=== PATIENT | male | born 1965 | race Caucasian/White ===

== ENCOUNTER 2019-08-08 17:10 | Emergency (ER) | payer SELFPAY ==
[~2019-08-08] VITALS: Ht 177.8 cm; Wt 86.4 kg
[2019-08-08 17:12] VITALS: BP 148/97
[2019-08-08] MEDS ORDERED: IBUP-2271 PO (17:20)
[2019-08-08] MEDS ORDERED: ARIP2 PO (17:20)
[2019-08-08] MEDS ORDERED: QUET100T PO (17:20)
[2019-08-08] MEDS ORDERED: PROP20TA18 PO (17:20)
== END 2019-08-08 17:49 | disposition left against medical advice (07) ==
LOC: EMS 17:10
DX: Z53.21 Procedure and treatment not carried out due to patient leaving prior to being seen by health care provider (principal)

== ENCOUNTER 2019-09-05 09:51 | Inpatient (IN) | payer MEDICAID, OTHER ==
[~2019-09-05] VITALS: Ht 182.9 cm; Wt 80.5 kg
[~2019-09-05 09:51] MED LIST: ARIP2 PO; IBUP-2271 PO; PROP20TA18 PO; QUET100T PO
[2019-09-05 11:11] LABS: AMPHET/METH SCREEN,URINE NEGATIVE (NEGATIVE); BARBITURATE SCREEN, URINE NEGATIVE (NEGATIVE); BENZODIAZEPINES SCREEN,URINE NEGATIVE (NEGATIVE); CANNABINOID SCREEN,URINE NEGATIVE (NEGATIVE); COCAINE SCREEN,URINE NEGATIVE (NEGATIVE); METHADONE SCREEN, URINE NEGATIVE (NEGATIVE); OPIATE SCREEN,URINE NEGATIVE (NEGATIVE)
[2019-09-05 11:14] LABS: PHENCYCLIDINE SCREEN,URINE NEGATIVE (NEGATIVE)
[2019-09-05] MEDS ORDERED: IBUP-2070 PO (11:15)
[2019-09-05] MEDS ORDERED: LORazepam 2 MG TABLET PO ONE (11:15)
[2019-09-05] MEDS ORDERED: HALOPERIDOL 5 MG TABLET PO ONE (11:15)
[2019-09-05 12:44] LABS: APPEARANCE,URINE CLEAR (CLEAR); BILIRUBIN,URINE NEGATIVE (NEGATIVE); GLUCOSE, URINE (UA) NEGATIVE (NEGATIVE); KETONES,URINE NEGATIVE (NEGATIVE); LEUKOCYTE ESTERASE ,URINE NEGATIVE (NEGATIVE); NITRATE,URINE NEGATIVE (NEGATIVE); OCCULT BLOOD,URINE NEGATIVE (NEGATIVE); PH,URINE 5.5 (5.0-8.0); PROTEIN,URINE NEGATIVE (NEGATIVE); UROBILINOGEN,URINE 0.2 mg/dL (<=1.0)
[2019-09-05 13:01] LABS: EOSINOPHILS % (AUTO) 4.8 % (1.0-6.0); HEMATOCRIT 43.7 % (41-53); HEMOGLOBIN 14.4 g/dL (13.5-17.5); LYMPHOCYTES # (AUTO) 2.3 K/uL (1.0-4.8); LYMPHOCYTES % (AUTO) 34.9 % (22.0-44.0); MEAN CORPUSCULAR HGB CONC 32.9 G/dL (31.0-37.0); MEAN CORPUSCULAR VOLUME 91 fL (80-100); MONOCYTES # (AUTO) 0.7 K/uL (0.1-1.0); MONOCYTES % (AUTO) 10.3 % (2.0-9.0); NEUTROPHILS # (AUTO) 3.3 K/uL (1.8-7.7); PLATELET COUNT (AUTO) 236 K/uL (150-450); RED CELL DISTRIBUTION WIDTH 15.7 % (11.5-14.5)
[2019-09-05 13:09] LABS: ANION GAP 9 mmol/L (8-16); CALCIUM, TOTAL 8.4 mg/dL (8.8-10.5); CARBON DIOXIDE 30 mmol/L (22-29); CHLORIDE 107 mmol/L (98-107); CREATININE 0.77 mg/dL (0.60-1.30); GLOMERULAR FILTR. RATE CALC > 60 mL/min (>60); GLUCOSE,RANDOM 92 mg/dL (70-110); POTASSIUM 4.2 mmol/L (3.5-5.1); SODIUM SERUM 146 mmol/L (136-145); UREA NITROGEN, BLOOD 14 mg/dL (7-18)
[2019-09-05 13:15] LABS: ALANINE AMINOTRANSFERASE 15 U/L (12-78); ALBUMIN 3.3 g/dL (3.4-5.0); ALKALINE PHOSPHATASE 113 U/L (46-116); ASPARTATE AMINOTRANSFERASE 16 U/L (15-37); BILIRUBIN,TOTAL 0.3 mg/dL (0.1-1.0); TOTAL PROTEIN, SERUM 7.3 g/dL (6.4-8.2)
[2019-09-05] MEDS ORDERED: INFLUENZA VIRUS VACCINE QVS 2019-20 (3YR+)/PF 60 MCG/0.5 ML SYRINGE IM ONE (15:45)
[2019-09-05 16:00] VITALS: BP 120/77
[2019-09-05 18:00] VITALS: BP 135/77
[2019-09-06] VITALS (7 sets, daily range): BP systolic 123–156; BP diastolic 75–86
[2019-09-06] MEDS: QUEtiapine FUMARATE 100 MG TABLET PO PRN ×2 (01:03→21:42)
[2019-09-06] MEDS: ZOLPIDEM TARTRATE 10 MG TABLET PO PRN ×2 (01:03→21:42)
[2019-09-06] MEDS ORDERED: CloNIDine HCL 0.1 MG TABLET PO PRN (10:15)
[2019-09-06] MEDS ORDERED: LOPERAMIDE HCL 2 MG CAPSULE PO PRN (10:15)
[2019-09-06] MEDS ORDERED: MAG HYDROX/AL HYDROX/SIMETH ES 30 ML SUSPENSION UDCUP PO PRN (10:15)
[2019-09-06] MEDS ORDERED: ONDANSETRON HCL 4 MG TABLET PO PRN (10:15)
[2019-09-06] MEDS ORDERED: DOCUSATE SODIUM 100 MG CAPSULE PO PRN (10:15)
[2019-09-06] MEDS ORDERED: ALBUTEROL SULFATE HFA 90 MCG/PUFF 8 GM INHALER IH PRN (10:15)
[2019-09-06] MEDS ORDERED: NICOTINE 14 MG/24 HOUR PATCH TD PRN (10:15)
[2019-09-06] MEDS ORDERED: IBUPROFEN 400 MG TABLET PO PRN (10:15)
[2019-09-06] MEDS ORDERED: MAGNESIUM HYDROXIDE SUSPENSION 30 ML UDCUP PO PRN (10:15)
[2019-09-06] MEDS ORDERED: GuaiFENesin/D-METHORPHAN [SUGAR-FREE] 200-20MG/10 ML SYRUP UDCUP PO PRN (10:15)
[2019-09-06] MEDS ORDERED: PETROLATUM,WHITE 28 GM JELLY TP PRN (10:15)
[2019-09-06] MEDS: ACETAMINOPHEN 325 MG TABLET PO PRN (16:38)
[2019-09-06] MEDS ORDERED: IBUPROFEN 600 MG TABLET PO PRN (18:15)
[2019-09-06] MEDS: LORazepam 2 MG TABLET PO PRN (18:22)
[2019-09-07 00:19] VITALS: BP 122/84
[2019-09-07] MEDS: LORazepam 2 MG TABLET PO PRN ×2 (00:57→05:24)
[2019-09-07] MEDS: ACETAMINOPHEN 325 MG TABLET PO PRN ×2 (03:25→09:36)
[2019-09-07 05:22] VITALS: BP 140/60
[2019-09-07 08:00] VITALS: BP 111/87
[2019-09-07] MEDS ORDERED: TraMADol HCL 50 MG TABLET PO PRN (08:30)
[2019-09-07 08:57] LABS: CHOL/HDL RATIO 5.1 (4.2-7.3); FREE T4 (FREE THYROXINE) 0.79 ng/dL (0.76-1.46); THYROID STIMULATING HORMONE 3.21 uIU/mL (0.36-3.74)
[2019-09-07] MEDS ORDERED: ARIPiprazole 10 MG TABLET PO SCH (09:00)
[2019-09-07] MEDS ORDERED: ARIP10TA8 PO (10:14)
== END 2019-09-07 13:30 | disposition home or self-care (01) | DRG 750 ==
LOC: EMS 09:52 → B3A 13:10
PROVIDERS: ADMIT Psychiatry & Neurology Psychiatry; ATTEND Psychiatry & Neurology Psychiatry
DX: F25.9 Schizoaffective disorder, unspecified (principal); E87.0 Hyperosmolality and hypernatremia; R45.851 Suicidal ideations; F10.10 Alcohol abuse, uncomplicated; Z71.41 Alcohol abuse counseling and surveillance of alcoholic; F11.90 Opioid use, unspecified, uncomplicated; F17.200 Nicotine dependence, unspecified, uncomplicated; Z71.6 Tobacco abuse counseling; F31.9 Bipolar disorder, unspecified; Z53.20 Procedure and treatment not carried out because of patient's decision for unspecified reasons
CPT/HCPCS: 84439; 84443; G0480

== ENCOUNTER 2022-07-17 13:51 | Inpatient (IN) | payer MEDICAID ==
[~2022-07-17] VITALS: Ht 182.9 cm; Wt 88.9 kg
[~2022-07-17 13:51] MED LIST changes: +ARIP10TA38 PO; -ARIP2 PO; -IBUP-2271 PO; -PROP20TA18 PO; -QUET100T PO
[2022-07-17] MEDS ORDERED: DIVA-112 PO (17:05)
[2022-07-17] MEDS ORDERED: VALB80CA PO (17:05)
[2022-07-17] MEDS ORDERED: GABA600T10 PO (17:05)
[2022-07-17] MEDS ORDERED: PRAZ2CAP2 PO (17:05)
[2022-07-17] MEDS ORDERED: MIRT-93 PO (17:05)
[2022-07-17 18:06] LABS: GLUCOMETER DEV NAME(LOC) POC.BV
[2022-07-18 03:00] VITALS: BP 131/83
[2022-07-18] MEDS: LORazepam 2 MG TABLET PO PRN ×4 (03:39→18:11)
[2022-07-18 09:41] VITALS: BP 125/91
[2022-07-18] MEDS ORDERED: BENZOCAINE/MENTHOL LOZENGE PO PRN (11:45)
[2022-07-18] MEDS ORDERED: CloNIDine HCL 0.1 MG TABLET PO PRN (11:45)
[2022-07-18] MEDS ORDERED: MAG HYDROX/AL HYDROX/SIMETH ES 30 ML SUSPENSION UDCUP PO PRN (11:45)
[2022-07-18] MEDS ORDERED: BACITRACIN 28 GM OINTMENT TP PRN (11:45)
[2022-07-18] MEDS ORDERED: IBUPROFEN 600 MG TABLET PO PRN (11:45)
[2022-07-18] MEDS ORDERED: DOCUSATE SODIUM 100 MG CAPSULE PO PRN (11:45)
[2022-07-18] MEDS ORDERED: MAGNESIUM HYDROXIDE SUSPENSION 30 ML UDCUP PO PRN (11:45)
[2022-07-18] MEDS ORDERED: PETROLATUM,WHITE 28 GM JELLY TP PRN (11:45)
[2022-07-18] MEDS ORDERED: ACETAMINOPHEN 325 MG TABLET PO PRN (11:45)
[2022-07-18] MEDS ORDERED: DICLOFENAC SODIUM 1% 100 GM GEL [2GM] TP PRN (11:45)
[2022-07-18] MEDS ORDERED: ONDANSETRON HCL 4 MG TABLET PO PRN (11:45)
[2022-07-18] MEDS ORDERED: LOPERAMIDE HCL 2 MG CAPSULE PO PRN (11:45)
[2022-07-18] MEDS ORDERED: ALBUTEROL SULFATE HFA 90 MCG/PUFF 8 GM INHALER IH PRN (11:45)
[2022-07-18] MEDS ORDERED: OMEPRAZOLE 20 MG CAPSULE PO PRN (11:45)
[2022-07-18 19:36] LABS: GLUCOMETER DEV NAME(LOC) POC.BV
[2022-07-18 20:48] VITALS: BP 104/67
[2022-07-18] MEDS ORDERED: MISC MED-CONVERTED FROM AMBULATORY (Valbenazine Tosylate (Ingrezza) 1 CAPSULE) PO SCH (21:00)
[2022-07-18] MEDS: MIRTAZAPINE 30 MG TABLET PO SCH (21:22)
[2022-07-18] MEDS: DIVALPROEX SODIUM 500 MG DR TABLET PO SCH (21:22)
[2022-07-18] MEDS: PRAZOSIN HCL 1 MG CAPSULE PO SCH (21:22)
[2022-07-18 21:23] VITALS: BP 133/91
[2022-07-18] MEDS: ZOLPIDEM TARTRATE 10 MG TABLET PO PRN (21:26)
[2022-07-19] MEDS: LORazepam 2 MG TABLET PO PRN ×3 (04:14→13:08)
[2022-07-19] MEDS: GABAPENTIN 300 MG CAPSULE PO SCH ×2 (09:01→17:00)
[2022-07-19] MEDS: ARIPiprazole 10 MG TABLET PO SCH (09:01)
[2022-07-19 09:07] VITALS: BP 138/90
[2022-07-19] MEDS: DENTURE ADHESIVE 68 GM CREAM DT PRN (10:01)
[2022-07-19] MEDS ORDERED: PRAZ1 PO (11:12)
[2022-07-19] MEDS ORDERED: ARIP10642 IM (11:12)
[2022-07-19] MEDS: HALOPERIDOL 5 MG TABLET PO PRN (12:23)
[2022-07-19] MEDS: DIVALPROEX SODIUM 500 MG DR TABLET PO SCH (20:47)
[2022-07-19] MEDS: PRAZOSIN HCL 1 MG CAPSULE PO SCH (20:48)
[2022-07-19] MEDS: MIRTAZAPINE 30 MG TABLET PO SCH (20:48)
[2022-07-19 21:16] VITALS: BP 131/87
[2022-07-20] MEDS: LORazepam 2 MG TABLET PO PRN ×3 (01:08→14:03)
[2022-07-20] MEDS: HALOPERIDOL 5 MG TABLET PO PRN ×3 (03:37→15:09)
[2022-07-20 08:30] VITALS: BP_SYST 123; BP_SYST 97; BP_DIAS 60; BP_DIAS 78
[2022-07-20] MEDS: GABAPENTIN 300 MG CAPSULE PO SCH ×2 (08:39→16:56)
[2022-07-20] MEDS: ARIPiprazole 10 MG TABLET PO SCH (08:39)
[2022-07-20 20:05] VITALS: BP 116/69
[2022-07-20] MEDS: MIRTAZAPINE 30 MG TABLET PO SCH (20:32)
[2022-07-20] MEDS: DIVALPROEX SODIUM 500 MG DR TABLET PO SCH (20:32)
[2022-07-20] MEDS: PRAZOSIN HCL 1 MG CAPSULE PO SCH (20:32)
[2022-07-21] MEDS: ZOLPIDEM TARTRATE 10 MG TABLET PO PRN (01:05)
[2022-07-21] MEDS: GABAPENTIN 300 MG CAPSULE PO SCH ×2 (08:06→17:14)
[2022-07-21] MEDS: LORazepam 2 MG TABLET PO PRN ×3 (08:06→20:14)
[2022-07-21] MEDS: ARIPiprazole 10 MG TABLET PO SCH (08:06)
[2022-07-21] MEDS: HALOPERIDOL 5 MG TABLET PO PRN ×2 (08:13→13:43)
[2022-07-21 08:35] VITALS: BP 102/62
[2022-07-21 20:03] VITALS: BP 134/92
[2022-07-21] MEDS: DIVALPROEX SODIUM 500 MG DR TABLET PO SCH (20:13)
[2022-07-21] MEDS: PRAZOSIN HCL 1 MG CAPSULE PO SCH (20:14)
[2022-07-21] MEDS: MIRTAZAPINE 30 MG TABLET PO SCH (20:14)
[2022-07-22] MEDS: ZOLPIDEM TARTRATE 10 MG TABLET PO PRN (01:02)
[2022-07-22] MEDS: DENTURE ADHESIVE 68 GM CREAM DT PRN (06:21)
[2022-07-22 08:15] VITALS: BP 135/78
[2022-07-22] MEDS: GABAPENTIN 300 MG CAPSULE PO SCH (08:56)
[2022-07-22] MEDS: LORazepam 2 MG TABLET PO PRN (08:56)
[2022-07-22] MEDS: ARIPiprazole 10 MG TABLET PO SCH (08:56)
[2022-07-22] MEDS ORDERED: DIVA-112 PO (11:28)
[2022-07-22] MEDS ORDERED: MIRT-93 PO (11:28)
[2022-07-22] MEDS ORDERED: ARIP10TA38 PO (11:28)
[2022-07-22] MEDS ORDERED: PRAZ1 PO (11:28)
[2022-07-22] MEDS ORDERED: GABA-1181 PO (11:28)
== END 2022-07-22 15:15 | disposition home or self-care (01) | DRG 750 ==
LOC: B2X 07-18 02:00 → B2S 07-18 21:02 → B2X 07-19 15:46
PROVIDERS: ADMIT Psychiatry & Neurology Psychiatry; ATTEND Psychiatry & Neurology Psychiatry
DX: F25.9 Schizoaffective disorder, unspecified (principal); R45.851 Suicidal ideations; F41.0 Panic disorder [episodic paroxysmal anxiety]; Z20.822 Contact with and (suspected) exposure to COVID-19; G89.29 Other chronic pain; J44.9 Chronic obstructive pulmonary disease, unspecified; I10 Essential (primary) hypertension; Z56.0 Unemployment, unspecified; Z72.0 Tobacco use
CPT/HCPCS: Z7610